=== PATIENT | female | born 1995 | race Caucasian/White ===

== ENCOUNTER 2017-08-15 09:00 | Observation (INO) | payer OTHER ==
[~2017-08-15] VITALS: Ht 160 cm; Wt 73.4 kg
[2017-08-15] MEDS ORDERED: ACETAMINOPHEN 500 MG TAB PO STA (09:13)
[2017-08-15] MEDS ORDERED: OPTIRAY 320 IV PRN (09:30)
[2017-08-15] MEDS ORDERED: DIPHTHERIA/TETANUS/PERTUSSIS 0.5 ML SYR/VIAL IM. ONE (09:45)
[2017-08-15 09:48] LABS: ISTAT CREATININE 0.7 mg/dl (0.6-1.3); ISTAT IONIZED CALCIUM 1.15 mmol/l (1.12-1.32); ISTAT POTASSIUM 3.8 mEq/L (3.3-5.0)
[2017-08-15] MEDS ORDERED: MULT-506 PO (09:48)
[2017-08-15] MEDS ORDERED: SPIR100T PO (09:48)
[2017-08-15] MEDS ORDERED: NORE-41 PO (09:48)
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
[2017-08-15 11:42] LABS: ALBUMIN 3.8 gm/dl (3.4-5.0); ALT/SGPT 135 U/L (12-78); AST/SGOT 178 U/L (15-37); BLOOD UREA NITROGEN 11 mg/dl (7-18); CALCIUM 8.8 mg/dl (8.5-10.1); CARBON DIOXIDE 26 mmol/L (21-32); CREATININE 0.75 mg/dl (0.60-1.20); GLUCOSE 125 mg/dl (70-99); POTASSIUM 3.7 mmol/L (3.5-5.1); PTT PATIENT 27.5 SECONDS (21.0-31.0); SODIUM 135 mmol/L (136-145)
[2017-08-15 11:45] LABS: ALKALINE PHOSPHATASE 63 U/L (45-117); TOTAL PROTEIN 7.6 gm/dl (6.4-8.2)
[2017-08-15 11:49] LABS: BASO % 0.2 %; BASO ABS # 0.02 K/uL (0-0.2); EOS ABS # 0.12 K/uL (0-0.5); HEMATOCRIT 42.2 % (37-47); HEMOGLOBIN 14.6 g/dL (12.0-16.0); IG# 0.05 K/uL (0.00-0.02); LYMPH % 16.7 %; LYMPH ABS # 1.96 K/uL (1.2-3.4); MEAN CELL VOLUME 87.7 fL (80-100); MEAN CORPUSCULAR HEMOGLOBIN 30.4 pg (25-34); MEAN CORPUSCULAR HGB CONC 34.6 g/dl (32-36); MEAN PLATELET VOLUME 10.4 fL (7.4-10.4); MONO % 4.1 %; MONO ABS # 0.48 K/uL (0.11-0.59); NEUT % 77.6 %; PLATELET COUNT 296 K/uL (130-400); RED CELL DISTRIBUTION WIDTH CV 12.5 % (11.5-14.5); RED CELL DISTRIBUTION WIDTH SD 39.9 fL (36.4-46.3); WHITE BLOOD COUNT 11.73 K/uL (4.8-10.8)
[2017-08-15] MEDS ORDERED: HYDROmorphone INJ 1 MG/ML SYR IV PRN ×2 (14:00)
[2017-08-15] MEDS ORDERED: OXYCODONE/ACETAMINOPHEN 5-325 TAB PO PRN (14:00)
[2017-08-15] MEDS ORDERED: HYDROmorphone INJ 0.5 MG/0.5 ML SYR IV PRN (14:00)
[2017-08-15] MEDS ORDERED: ONDANSETRON INJ 2 MG/ML 2 ML VIAL IV PRN (14:00)
[2017-08-15 14:32] VITALS: O2SAT 97; Ht 160 cm; Wt 73.4 kg
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
[2017-08-15 14:46] VITALS: O2SAT 97
[2017-08-15 15:00] VITALS: BP 122/77; PULSE 91; TEMP 37; O2SAT 97
[2017-08-15] MEDS ORDERED: IV FLUIDS COMPLETED PRN (15:00)
[2017-08-15] MEDS: OXYCODONE/ACETAMINOPHEN 5-325 TAB PO PRN ×2 (15:16→23:39)
[2017-08-15] MEDS: ACETAMINOPHEN IV 650 MG in EMPTY BAG 0 ML IV SCH ×2 (19:06→23:36)
[2017-08-15] MEDS ORDERED: MICROGESTIN PO SCH (20:00)
[2017-08-15] MEDS: IBUPROFEN 600 MG TAB PO SCH (21:01)
[2017-08-15 23:10] VITALS: BP 109/69; PULSE 99; TEMP 36.9; O2SAT 97
[2017-08-16] MEDS: ACETAMINOPHEN IV 650 MG in EMPTY BAG 0 ML IV SCH (05:55)
[2017-08-16 06:02] LABS: BASO % 0.2 %; BASO ABS # 0.02 K/uL (0-0.2); EOS % 1.2 %; EOS ABS # 0.15 K/uL (0-0.5); HEMATOCRIT 40.6 % (37-47); HEMOGLOBIN 13.9 g/dL (12.0-16.0); IG# 0.03 K/uL (0.00-0.02); LYMPH ABS # 2.67 K/uL (1.2-3.4); MEAN CELL VOLUME 87.5 fL (80-100); MEAN CORPUSCULAR HGB CONC 34.2 g/dl (32-36); MEAN PLATELET VOLUME 10.1 fL (7.4-10.4); MONO % 6.7 %; MONO ABS # 0.85 K/uL (0.11-0.59); NEUT % 70.7 %; NEUT ABS # 8.97 K/uL (1.4-6.5); PLATELET COUNT 287 K/uL (130-400); RED CELL DISTRIBUTION WIDTH CV 12.8 % (11.5-14.5); RED CELL DISTRIBUTION WIDTH SD 41.1 fL (36.4-46.3); WHITE BLOOD COUNT 12.69 K/uL (4.8-10.8)
[2017-08-16 06:29] LABS: ALBUMIN 3.5 gm/dl (3.4-5.0); TOTAL PROTEIN 7.3 gm/dl (6.4-8.2)
[2017-08-16 07:40] VITALS: BP 102/66; PULSE 93; TEMP 36.8; O2SAT 98
[2017-08-16] MEDS ORDERED: SPIRONOLACTONE 100 MG TAB PO SCH (09:00)
[2017-08-16] MEDS: IBUPROFEN 600 MG TAB PO SCH (09:34)
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
[2017-08-16] MEDS ORDERED: OXYC-57 PO (12:28)
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
== END 2017-08-16 13:30 | disposition home or self-care (01) ==
LOC: EDBD 09:00 → C.EDA 09:02 → C.MSN 13:56 → ENRESERV 14:07
PROVIDERS: ADMIT Surgery; ATTEND Surgery
DX: S01.111A Laceration without foreign body of right eyelid and periocular area, initial encounter (principal); S22.41XA Multiple fractures of ribs, right side, initial encounter for closed fracture; R10.11 Right upper quadrant pain; R79.89 Other specified abnormal findings of blood chemistry; V43.51XA Car driver injured in collision with sport utility vehicle in traffic accident, initial encounter; Z88.1 Allergy status to other antibiotic agents